=== PATIENT | male | born 1950 | race Caucasian/White ===

== ENCOUNTER 2018-01-13 10:56 | Outpatient (CLI) | payer BC ==
[2018-01-13 18:32] LABS: ALBUMIN 4.2 g/dL (3.2-5.5); ALBUMIN/GLOBULIN RATIO 1.4 (1.0-2.2); ALKALINE PHOSPHATASE 45 IU/L (42-121); ALT ALANINE AMINOTRANSFERASE 47 IU/L (10-60); AST ASPARTATE AMINOTRANSFERASE 33 IU/L (10-42); BILIRUBIN,TOTAL 1.1 mg/dL (0.2-1.0); BUN - BLOOD UREA NITROGEN 20 mg/dL (6-20); CARBON DIOXIDE - CO2 25 mmol/L (21-32); CHLORIDE 104 mmol/L (101-111); CHOL/HDL RATIO 4.3 (<5.0); CHOLESTEROL 159 mg/dL; CREATININE 0.9 mg/dL (0.6-1.2); GFR - MDRD 84 (>89); GLUCOSE 107 mg/dL (70-100); HDL CHOLESTEROL 37 mg/dL; LDL CHOLESTEROL,CALCULATED 86 mg/dL; LDL/HDL RATIO 2.3 (<3.6); SODIUM 137 mmol/L (135-145); TOTAL PROTEIN 7.1 g/dL (6.7-8.2); VLDL CHOLESTEROL 36 mg/dL
[2018-01-13 19:31] LABS: HB2 TOTAL 15.8 g/dL; HEMOGLOBIN A1C 0.62 g/dL; HEMOGLOBIN A1C % 5.7 % (4.6-6.2)
== END 2018-01-13 10:57 | disposition home or self-care (01) ==
LOC: LAB.F 10:56
PROVIDERS: ATTEND Internal Medicine
DX: I10 Essential (primary) hypertension (principal); E78.6 Lipoprotein deficiency; R73.01 Impaired fasting glucose
CPT/HCPCS: 36415; 80053; 80061; 83036; 83721; 84443

== ENCOUNTER 2018-04-04 13:22 | Outpatient (CLI) | payer MEDICARE, OTHER | END 2018-04-04 13:23 | disposition home or self-care (01) | LOC: SC 13:22 | PROVIDERS: ATTEND Internal Medicine Pulmonary Disease | DX: G47.33 Obstructive sleep apnea (adult) (pediatric) (principal); E66.9 Obesity, unspecified; Z68.38 Body mass index [BMI] 38.0-38.9, adult | CPT/HCPCS: 99203; G0463; 99212 ==

== ENCOUNTER 2019-01-23 07:00 | Outpatient (CLI) | payer MEDICARE, OTHER ==
[2019-01-23 10:17] LABS: ALBUMIN 4.2 g/dL (3.2-5.5); ALBUMIN/GLOBULIN RATIO 1.5 (1.0-2.2); ALKALINE PHOSPHATASE 40 IU/L (42-121); ALT ALANINE AMINOTRANSFERASE 49 IU/L (10-60); AST ASPARTATE AMINOTRANSFERASE 42 IU/L (10-42); BILIRUBIN,TOTAL 0.7 mg/dL (0.2-1.0); BUN - BLOOD UREA NITROGEN 18 mg/dL (6-20); CALCIUM 9.1 mg/dL (8.5-10.3); CARBON DIOXIDE - CO2 26 mmol/L (21-32); CHLORIDE 103 mmol/L (101-111); CHOL/HDL RATIO 4.6 (<5.0); CHOLESTEROL 151 mg/dL; CREATININE 0.9 mg/dL (0.6-1.2); GFR - MDRD 84 (>89); GLUCOSE 107 mg/dL (70-100); HB2 TOTAL 14.2 g/dL; HDL CHOLESTEROL 33 mg/dL; HEMOGLOBIN A1C 0.63 g/dL; HEMOGLOBIN A1C % 6.2 % (4.6-6.2); LDL CHOLESTEROL,CALCULATED 87 mg/dL; LDL/HDL RATIO 2.6 (<3.6); SODIUM 138 mmol/L (135-145); VLDL CHOLESTEROL 31 mg/dL
== END 2019-01-23 23:59 | disposition home or self-care (01) ==
LOC: LAB.S 07:00
PROVIDERS: ATTEND Internal Medicine
DX: I10 Essential (primary) hypertension (principal); E78.5 Hyperlipidemia, unspecified; R73.01 Impaired fasting glucose; Z12.5 Encounter for screening for malignant neoplasm of prostate
CPT/HCPCS: 36415; 80053; 80061; 83036; G0103; 83721; 84153

== ENCOUNTER 2019-08-01 12:01 | Outpatient (CLI) | payer MEDICARE ==
--- NOTE | 2019-08-01 10:13 | SLEEP CARE CONSULTATION ---
Information from patient questionnaire entered by Peg Ponce. I have reviewed and concur with the information entered by Peg Ponce. This document represents the service I personally performed and the decisions made by me, Loyda Pérez, RN, MSN, CONVERTER OPERATOR. History of Present Illness Service Date and Time: 08/01/2019 09 Previous diagnosis: Severe, Obstructive Sleep Apnea-Hypopnea Syndrome AHI: 35.1 (in 2014) Reason for follow up: annual (last seen 2019) Equipment type: CPAP Equipment obtained from: [employer] (in [place] - getting supplies as needed) Mask style: Nasal pillows Backup mask available: Yes (old mask ) Last cushion change: 3-4 weeks ago / changes every 3 months Prior sleep studies: Yes Year and Where: 2014 - [facility] in [place], [place] Type of Sleep Study: Polysomnography CPAP Compliance Data - Data Reviewed with Patient Average duration of nightly device use: 8 Compliance rate %: 99 (180 days) Current pressure setting (cmH2O): 8-13 Humidity settin Average residual AHI: 0.2 Average large leak: 8 liters per minute Subjective Patient concerns: reports: other (the headgear wears out before 6 months contributing to leaks despite adjustment). denies: aerophagia, mask discomfort, air blowing in eyes, mask leak noise, condensation in mask/hose, nasal congestion, dry mouth, nose, throat, epistaxis Observed to snore while using device: No Current pressure setting perceived as: comfortable On therapy, patient: reports: sleeping better (he was not tired prior to startingCPAP ) Initial Lockwood Sleepiness Scale score: 1 (in 2019) Current [place] Sleepiness Scale score: 0 Allergies and Home Medications Home medication list reviewed: No (no changes) Review of Systems Review of systems same as previous: Yes Physical Exam Height: 6 ft Weight: 265 lb Body Mass Index: 35.9 BMI Classification: Obese Impression and Plan 1. Obstructive Sleep Apnea-Hypopnea Syndrome, severe , with good treatment compliance and good apnea control. On CPAP therapy, the patient has better sleep quality and pleased with benefit of treatment. For mask leaks, he was advised to update the mask cushions more regularly. However, the patient feels the mask leaks are due to mask headgear wearing out sooner than 6 months and increases leaks despite adjustment. He states that this mask is best tried so far and does not want to change styles as it does not disrupt his sleep. The patient has had this CPAP over 5 years old and of reasonable use. He has had power supply failed in the past and repaired and concerned about future failure with current age of device. I explained the process of updating his CPAP. A DWO prescription will be made and sent to his DME who will oontact him. Once he receives the device, he is to contact this office for insurance compliance follow up. Patient questions answered about the process and no other concerns voiced. I also addressed his weight. Current BMI 35.9 obesity. I counseled patient how obesity increases similar health risks as untreated apnea below including risk of diabetes. He is advised to discuss weight loss goals with his PCP and consider a diet consultation. His current pressure range will adjust for some weight loss. Symptoms to report for furhter adjustment discussed. Patient's apnea severity and rationale for treatment to reduce apnea, improve sleep quality and reduce hypertension, cardiovascular and cerebrovascular events was reviewed. * Update CPAP and Continue at auto CPAP pressure at 13 cmH2O * Notify me if snoring with mask or feeling that the pressure is too much or too little * Attempt to lose weight * Call this office if any problems using CPAP * Return for follow up after new CPAP , or sooner if concerns arise Visit Type: Telehealth Video (to reduce risk of Covid 19 exposure) Video Type: Weight Wins Patient Location: Home Location of Provider: Home Patient agrees and consents to this telehealth visit type: Yes Time Spent with Patient (minutes): 20 Provider Statement: I spent 100% of the Telehealth Video Call with the patient with greater than 50% spent counseling the patient and coordination of care.
== END 2019-08-01 12:02 | disposition home or self-care (01) ==
LOC: SC 12:01
PROVIDERS: ATTEND Nurse Practitioner Family
DX: G47.33 Obstructive sleep apnea (adult) (pediatric) (principal); E66.9 Obesity, unspecified; Z68.35 Body mass index [BMI] 35.0-35.9, adult

== ENCOUNTER 2020-11-19 08:22 | Outpatient (CLI) | payer MEDICARE ==
--- NOTE | 2020-11-19 08:33 | SLEEP CARE CONSULTATION ---
Information from patient questionnaire entered by Peg Ponce. I have reviewed and concur with the information entered by Peg Ponce. This document represents the service I personally performed and the decisions made by , Tania Lazaro ARNP. History of Present Illness Service Date and Time: 11/19/2020 0820 Previous diagnosis: Severe, Obstructive Sleep Apnea-Hypopnea Syndrome AHI: 35.1 (in 2014) Reason for follow up: annual (last seen 10/2019) Equipment type: CPAP Equipment obtained from: [employer] (in [place], [place] /he does not get supplies from them; gets from [employer]) Mask style: Nasal Backup mask available: Yes (old mask) Last cushion change: 1 month Prior sleep studies: Yes Year and Where: 2015 - [facility] in [place], [place] HPI additional information: EDMUNDO COPE was diagnosed to have severe, AHI 35.1, obstructive sleep apnea- hypopnea syndrome and returns via video Telehealth visit today for CPAP therapy annual follow-up. CPAP Compliance Data - Data Reviewed with Patient Average duration of nightly device use: 7 hr 48 min Compliance rate %: 95 (180 days) Current pressure setting (cmH2O): 8-13 Humidity settin Average residual AHI: 0.3 Subjective Missed days of use due to: reports: other (using other old machine at other home) Patient concerns: denies: aerophagia, mask discomfort, air blowing in eyes, mask leak noise, condensation in mask/hose, nasal congestion, dry mouth, nose, throat, epistaxis, other Observed to snore while using device: No Current pressure setting perceived as: comfortable On therapy, patient: reports: sleeping better, awakening more refreshed, being more awake and alert during the day, more rested overall. denies: drowsiness while driving Initial [place] Sleepiness Scale score: 1 (in 2019) Current [place] Sleepiness Scale score: 0 Allergies and Home Medications Home medication list reviewed: Yes (doxycycline) Review of Systems Review of systems same as previous: Yes (no changes) Physical Exam Vital signs obtained and entered by: Telehealth visit to reduce exposure during covid pandemic Height: 6 ft Impression and Plan 1. Obstructive Sleep Apnea-Hypopnea Syndrome, severe, with good treatment compliance and excellent apnea control. On CPAP therapy, the patient has better sleep quality and is more rested overall. Patient is very satisfied with current CPAP therapy. He does not miss a night on his CPAP. He has an older device at his other home in [place] that he will use when he is there. He also has battery backup for his machines in case of power outages. Patient states he has not gained any weight this year but he has not lost any either. Patient was encouraged to lose weight for their overall health and to reduce apneas. Patient's apnea severity and rationale for treatment to reduce apnea, improve sleep quality and reduce cardiovascular and cerebrovascular events was reviewed. I also reviewed the benefit of consistent device use of CPAP for hypertension. * Continue auto CPAP pressure at 8-13 cmH2O * Notify me if snoring with mask or feeling that the pressure is too much or too little * Attempt to lose weight * Call this office if any problems using CPAP * Return for follow up in 1 year, or sooner if concerns arise Counseling Topics: Spare mask, Weight loss health impact Visit Type: Telehealth Video Video Type: VSee Patient Location: Home Location of Provider: Office Patient agrees and consents to this telehealth visit type: Yes Patient agrees to have their insurance billed: Yes Time Spent with Patient (minutes): 16 Provider Statement: I spent 100% of the Telehealth Video Call with the patient with greater than 50% spent counseling the patient and coordination of care.
== END 2020-11-19 08:23 | disposition home or self-care (01) ==
LOC: SC 08:22
PROVIDERS: ATTEND Nurse Practitioner Family
DX: G47.33 Obstructive sleep apnea (adult) (pediatric) (principal)